=== PATIENT | female | born 1970 | race Caucasian/White ===

== ENCOUNTER → 2016-11-17 | Outpatient (CLI) | payer BC ==
[~2016-11-17] MED LIST: AMBIEN10 MG PO; CLARITIN10 MG PO; DEXILANT60 MG PO; LYRICA 75MG CAP75 MG PO; MONONESSA 35 MC1 TA1 PO; NATURE'S BLEND400 I1; ULTRAM 50MG TAB50 MG PO; VITAMIN B1225 MCG; ZOFRAN ODT8 MG PO
== END ==
LOC: LAB 16:06
DX: E89.0 Postprocedural hypothyroidism (principal)

== ENCOUNTER → 2018-02-19 | Outpatient (CLI) | payer BC, OTHER ==
[~2018-02-19] VITALS: Ht 175.3 cm; Wt 94.5 kg
[~2018-02-19] MED LIST changes: +CIPRO500 M1 PO; +FLAGYL500 M1 PO; +KLONOPIN 1MG1 MG PO; +LORATADINE10 MG PO; +LYRICA 150MG C150 MG PO; +NATURAL MAGNES200 MG PO; +OMEGA 3 FISH O1 EACH PO; +PROZAC10 M2 PO; +SENOKOT S 50 MG1 TAB PO; +SYNTHROID0.075 MG PO
[2018-02-19 10:46] VITALS: BP 102/60
[2018-02-19 12:26] VITALS: BP 109/73
[2018-02-23 13:11] LABS: ADRENOCORTICOTROPIC HORMONE 5.3 pg/mL (())
== END ==
LOC: AMSURD 10:21
PROVIDERS: Internal Medicine
DX: I95.9 Hypotension, unspecified (principal); R53.83 Other fatigue; E89.0 Postprocedural hypothyroidism; K52.9 Noninfective gastroenteritis and colitis, unspecified
CPT/HCPCS: J0834

== ENCOUNTER → 2019-01-14 | Outpatient (CLI) | payer BC ==
[~2019-01-14] VITALS: Ht 175.3 cm; Wt 97.3 kg
[~2019-01-14] MED LIST changes: +AUGMENTIN 875-1 EAC1 PO; +CLARITIN-D 10 M1 T24 PO; +FLUOXETINE HCL20 MG PO; +IMITREX6 MG/0.53 SQ; +ISOPTIN SR180 MG PO; +KLONOPIN 0.5MG0.5 MG PO; +PHARMASSURE MA500 MG PO; +SENOKOT NATURA8.6 MG PO; +SINGULAIR PO; +TRAMADOL 50 MG TAB PO; +VITAMIN B-1000 MCG/1 INJ
[2019-01-14 13:43] VITALS: BP 95/59
[2019-01-14 16:30] VITALS: BP 102/60
[2019-01-14 16:40] VITALS: BP 116/65
== END ==
LOC: AMSURD 12:44
DX: K57.92 Diverticulitis of intestine, part unspecified, without perforation or abscess without bleeding (principal); E86.0 Dehydration; R51 Headache
CPT/HCPCS: J7120

== ENCOUNTER → 2019-01-14 | Outpatient (CLI) | payer BC ==
[2018-02-19 12:26] VITALS: BP 109/73
[2019-01-14 13:50] LABS: HEMATOCRIT 39.9 % (37.0-47.0); HEMOGLOBIN 12.9 g/dL (12.5-16.0); MEAN PLATELET VOLUME 10.3 fl (7.4-10.4); RED BLOOD COUNT 4.54 M/mm3 (4.10-5.30); RED CELL DISTRIBUTION WIDTH 14.6 % (11.5-14.5); WHITE BLOOD COUNT 9.5 K/mm3 (4.8-10.8)
[2019-01-14 13:53] LABS: ALBUMIN 3.7 g/dL (3.5-5.0); CALCIUM 8.2 mg/dL (8.4-10.2); TOTAL BILIRUBIN 0.2 mg/dL (0.2-1.3); TOTAL PROTEIN 6.8 g/dL (6.3-8.2)
== END ==
LOC: EDSTATUS 09:35 → LAB 13:20
PROVIDERS: Internal Medicine
DX: K57.92 Diverticulitis of intestine, part unspecified, without perforation or abscess without bleeding (principal); E86.0 Dehydration; R51 Headache

== ENCOUNTER → 2020-04-20 | Outpatient (CLI) | payer OTHER ==
[2019-01-14 16:40] VITALS: BP 116/65
[2020-04-20 09:36] LABS: EOS # 0.2 (0.04-0.40); EOS % 1.9 % (1.0-5.0); HEMATOCRIT 43.4 % (37.0-47.0); LYMPH# 2.4 (1.50-4.00); MEAN CELL VOLUME 90 fl (78-100); MEAN CORPUSCULAR HEMOGLOBIN 29 pg (27-31); MEAN CORPUSCULAR HGB CONC 32 g/dL (33-37); MEAN PLATELET VOLUME 9.8 fl (7.4-10.4); MONO # 0.9 (0.20-0.80); NEU # 4.8 (1.40-6.50); PLATELET COUNT 398 K/mm3 (130-400); RED BLOOD COUNT 4.81 M/mm3 (4.10-5.30); RED CELL DISTRIBUTION WIDTH 14.9 % (11.5-14.5); WHITE BLOOD COUNT 8.3 K/mm3 (4.8-10.8)
[2020-04-20 09:50] LABS: POTASSIUM 4.1 mmol/L (3.5-5.1)
[2020-04-20 09:51] LABS: ALBUMIN 3.8 g/dL (3.5-5.0)
[2020-04-20 09:52] LABS: CALCIUM 9.1 mg/dL (8.3-10.5)
[2020-04-20 09:53] LABS: TOTAL PROTEIN 7.1 g/dL (6.4-8.3)
[2020-04-20 09:55] LABS: TOTAL BILIRUBIN 0.4 mg/dL (0.2-1.2)
[2020-04-20 10:41] LABS: ERYTHROCYTE SEDIMENTATION RATE 10 mm/hr (0-20)
== END ==
LOC: LAB 09:14
PROVIDERS: Internal Medicine
DX: Z00.00 Encounter for general adult medical examination without abnormal findings (principal)

== ENCOUNTER → 2020-08-21 | Outpatient (CLI) | payer OTHER ==
[2019-01-14 16:40] VITALS: BP 116/65
== END ==
LOC: RAD 09:40
DX: M79.671 Pain in right foot (principal)

== ENCOUNTER → 2021-03-07 | Outpatient (CLI) | payer OTHER ==
[2019-01-14 16:40] VITALS: BP 116/65
[2021-03-07 11:06] LABS: BASO # 0.02 (0.02-0.10); EOS # 0.07 (0.04-0.40); LYMPH# 2.54 (1.50-4.00); MEAN CELL VOLUME 89 fl (78-100); MEAN CORPUSCULAR HEMOGLOBIN 29 pg (27-31); MEAN CORPUSCULAR HGB CONC 33 g/dL (33-37); MEAN PLATELET VOLUME 9.5 fl (7.4-10.4); MONO # 0.67 (0.20-0.80); NEU # 3.71 (1.40-6.50); PLATELET COUNT 348 K/mm3 (130-400); RED BLOOD COUNT 4.84 M/mm3 (4.10-5.30); RED CELL DISTRIBUTION WIDTH 13.3 % (11.5-14.5)
[2021-03-07 11:20] LABS: ALBUMIN 4.2 g/dL (3.5-5.0)
[2021-03-07 11:21] LABS: POTASSIUM 4.5 mmol/L (3.5-5.1)
[2021-03-07 11:22] LABS: CALCIUM 9.7 mg/dL (8.3-10.5)
[2021-03-07 11:23] LABS: TOTAL PROTEIN 7.8 g/dL (6.4-8.3)
[2021-03-07 11:25] LABS: TOTAL BILIRUBIN 0.4 mg/dL (0.2-1.2)
[2021-03-07 11:29] LABS: MAGNESIUM 2.05 mg/dL (1.60-2.60)
== END ==
LOC: LAB 10:43
PROVIDERS: Internal Medicine
DX: I10 Essential (primary) hypertension (principal)

== ENCOUNTER 2022-02-22 15:31 | Emergency (ER) | payer OTHER ==
[~2022-02-22] VITALS: Ht 175.3 cm; Wt 88.6 kg
[2022-02-22] MEDS ORDERED: OMEGA 3 1,0001 EACH PO (16:44)
[2022-02-22] MEDS ORDERED: PREGABALIN150 MG PO (16:44)
[2022-02-22] MEDS ORDERED: BENTYL 20MG20 MG/TAB PO (16:44)
[2022-02-22] MEDS ORDERED: ONDANSETRON HYDR4 MG PO (16:44)
[2022-02-22] MEDS ORDERED: LEVOTHYROXIN0.075 MG PO (16:45)
[2022-02-22] MEDS ORDERED: CLONAZEPAM0.5 M1 PO (16:45)
[2022-02-22] MEDS ORDERED: AIMOVIG AU140 MG/1 M SQ (16:45)
[2022-02-22] MEDS ORDERED: OMEPRAZOLE40 MG PO (16:46)
[2022-02-22] MEDS ORDERED: SINGULAIR 110 MG/TAB PO (16:46)
[2022-02-22 16:51] LABS: BASO # 0.03 K/mm3 (0.02-0.10); EOS # 0.03 K/mm3 (0.04-0.40); EOS % 0.6 % (1.0-5.0); HEMATOCRIT 40.8 % (37.0-47.0); HEMOGLOBIN 13.4 g/dL (12.5-16.0); LYMPH# 1.94 K/mm3 (1.50-4.00); MEAN CELL VOLUME 91 fl (78-100); MEAN CORPUSCULAR HEMOGLOBIN 30 pg (27-31); MEAN CORPUSCULAR HGB CONC 33 g/dL (33-37); MEAN PLATELET VOLUME 9.9 fl (7.4-10.4); MONO # 0.82 K/mm3 (0.20-0.80); NEU # 2.53 K/mm3 (1.40-6.50); PLATELET COUNT 279 K/mm3 (130-400); RED BLOOD COUNT 4.48 M/mm3 (4.10-5.30); RED CELL DISTRIBUTION WIDTH 13.5 % (11.5-14.5); WHITE BLOOD COUNT 5.4 K/mm3 (4.8-10.8)
[2022-02-22 16:55] LABS: ALBUMIN 3.7 g/dL (3.5-5.0); POTASSIUM 3.3 mmol/L (3.5-5.1)
[2022-02-22 16:56] LABS: CALCIUM 8.6 mg/dL (8.3-10.5)
[2022-02-22 16:57] LABS: TOTAL PROTEIN 6.7 g/dL (6.4-8.3)
[2022-02-22 16:59] LABS: TOTAL BILIRUBIN 0.2 mg/dL (0.2-1.2)
[2022-02-22 17:04] LABS: URINE APPEARANCE HAZY; URINE BILIRUBIN NEGATIVE (NEGATIVE); URINE BLOOD TRACE (NEGATIVE); URINE COLOR YELLOW; URINE GLUCOSE NEGATIVE (NEGATIVE); URINE KETONE NEGATIVE (NEGATIVE); URINE LEUKOCYTE ESTERASE 1+ (NEGATIVE); URINE NITRATE NEGATIVE (NEGATIVE); URINE PROTEIN(semi-quant) TRACE (NEGATIVE); URINE UROBILINOGEN NORMAL (NORMAL)
[2022-02-22 17:05] LABS: URINE MUCUS PRESENT (NOT PRESENT)
[2022-02-22 18:39] VITALS: BP 107/65
== END 2022-02-22 20:05 | disposition home or self-care (01) ==
LOC: ED 15:31
PROVIDERS: Nurse Practitioner Family
DX: R10.84 Generalized abdominal pain (principal); R19.7 Diarrhea, unspecified
CPT/HCPCS: J2405; J7030

== ENCOUNTER → 2022-02-24 | Outpatient (CLI) | payer OTHER ==
[~2022-02-24] MED LIST changes: +AIMOVIG AU140 MG/1 M SQ; +BENTYL 20MG20 MG/TAB PO; +CLONAZEPAM0.5 M1 PO; +LEVOTHYROXIN0.075 MG PO; +OMEGA 3 1,0001 EACH PO; +OMEPRAZOLE40 MG PO; +ONDANSETRON HYDR4 MG PO; +PREGABALIN150 MG PO; +SINGULAIR 110 MG/TAB PO
== END ==
LOC: LAB 13:41
DX: Z01.89 Encounter for other specified special examinations (principal)

== ENCOUNTER → 2022-06-09 | Outpatient (CLI) | payer OTHER ==
[2022-06-09 17:38] LABS: BASO # 0.04 K/mm3 (0.02-0.10); EOS # 0.07 K/mm3 (0.04-0.40); EOS % 0.8 % (1.0-5.0); HEMATOCRIT 43.1 % (37.0-47.0); HEMOGLOBIN 13.9 g/dL (12.5-16.0); LYMPH# 3.18 K/mm3 (1.50-4.00); MEAN CELL VOLUME 91 fl (78-100); MEAN CORPUSCULAR HEMOGLOBIN 29 pg (27-31); MEAN CORPUSCULAR HGB CONC 32 g/dL (33-37); MEAN PLATELET VOLUME 9.5 fl (7.4-10.4); NEU # 4.84 K/mm3 (1.40-6.50); PLATELET COUNT 354 K/mm3 (130-400); RED BLOOD COUNT 4.76 M/mm3 (4.10-5.30); RED CELL DISTRIBUTION WIDTH 13.6 % (11.5-14.5); WHITE BLOOD COUNT 8.9 K/mm3 (4.8-10.8)
[2022-06-09 17:47] LABS: ALBUMIN 4.3 g/dL (3.5-5.0)
[2022-06-09 17:48] LABS: POTASSIUM 3.7 mmol/L (3.5-5.1)
[2022-06-09 17:49] LABS: CALCIUM 9.6 mg/dL (8.3-10.5)
[2022-06-09 17:50] LABS: TOTAL PROTEIN 7.7 g/dL (6.4-8.3)
[2022-06-09 17:52] LABS: TOTAL BILIRUBIN 0.3 mg/dL (0.2-1.2)
== END ==
LOC: LAB 17:24
PROVIDERS: Internal Medicine
DX: M70.62 Trochanteric bursitis, left hip (principal); G43.009 Migraine without aura, not intractable, without status migrainosus; M79.7 Fibromyalgia; K21.9 Gastro-esophageal reflux disease without esophagitis; F32.89 Other specified depressive episodes; K90.9 Intestinal malabsorption, unspecified; I10 Essential (primary) hypertension

== ENCOUNTER → 2022-08-06 | Outpatient (CLI) | payer OTHER | LOC: LAB 08:59 | DX: R73.9 Hyperglycemia, unspecified (principal) ==

== ENCOUNTER → 2022-11-06 | Outpatient (CLI) | payer OTHER | LOC: LAB 11:23 | DX: R05.9 Cough, unspecified (principal); Z20.822 Contact with and (suspected) exposure to COVID-19 ==

== ENCOUNTER → 2022-12-09 | Outpatient (CLI) | payer OTHER ==
[2022-12-11 08:30] LABS: LYME DISEASE EIA Negative (Negative)
[2022-12-12 13:07] LABS: ANA SCREEN with REFLEX Negative (Negative)
[2022-12-16 00:39] LABS: ADRENOCORTICOTROPIC HORMONE 12 pg/mL (5-27)
== END ==
LOC: LAB 17:03
PROVIDERS: Internal Medicine
DX: G25.2 Other specified forms of tremor (principal); F80.81 Childhood onset fluency disorder; K59.00 Constipation, unspecified; R51.9 Headache, unspecified; R11.2 Nausea with vomiting, unspecified

== ENCOUNTER → 2024-06-24 | Outpatient (CLI) | payer OTHER ==
[2024-06-24 14:37] LABS: BASO # 0.03 K/mm3 (0.02-0.10); EOS # 0.05 K/mm3 (0.04-0.40); EOS % 0.6 % (1.0-5.0); HEMOGLOBIN 13.8 g/dL (12.5-16.0); LYMPH# 2.13 K/mm3 (1.50-4.00); MEAN CELL VOLUME 91 fl (78-100); MEAN CORPUSCULAR HEMOGLOBIN 30 pg (27-31); MEAN CORPUSCULAR HGB CONC 33 g/dL (33-37); MEAN PLATELET VOLUME 9.8 fl (7.4-10.4); MONO # 0.95 K/mm3 (0.20-0.80); NEU # 5.75 K/mm3 (1.40-6.50); RED BLOOD COUNT 4.64 M/mm3 (4.10-5.30); RED CELL DISTRIBUTION WIDTH 13.7 % (11.5-14.5); WHITE BLOOD COUNT 8.9 K/mm3 (4.8-10.8)
[2024-06-24 14:44] LABS: ALBUMIN 4.1 g/dL (3.5-5.0)
[2024-06-24 14:45] LABS: CALCIUM 9.6 mg/dL (8.3-10.5)
[2024-06-24 14:46] LABS: TOTAL PROTEIN 7.2 g/dL (6.4-8.3)
[2024-06-24 14:48] LABS: TOTAL BILIRUBIN 0.3 mg/dL (0.2-1.2)
[2024-06-24 15:00] LABS: PLATELET COUNT 163 K/mm3 (130-400)
== END ==
LOC: LAB 14:14
PROVIDERS: Internal Medicine
DX: Z00.00 Encounter for general adult medical examination without abnormal findings (principal); Z12.11 Encounter for screening for malignant neoplasm of colon; K90.9 Intestinal malabsorption, unspecified

== ENCOUNTER → 2024-07-30 | Outpatient (CLI) | payer OTHER ==
[2024-07-30 11:07] LABS: ALBUMIN 4.2 g/dL (3.5-5.0)
[2024-07-30 11:08] LABS: CALCIUM 9.5 mg/dL (8.3-10.5)
[2024-07-30 11:09] LABS: TOTAL PROTEIN 7.1 g/dL (6.4-8.3)
[2024-07-30 11:11] LABS: TOTAL BILIRUBIN 0.5 mg/dL (0.2-1.2)
== END ==
LOC: LAB 10:43
PROVIDERS: Internal Medicine
DX: E78.2 Mixed hyperlipidemia (principal)